=== PATIENT | female | born 1990 | race Caucasian/White ===

== ENCOUNTER 2021-10-22 09:09 | Emergency (ER) | payer MEDICAID ==
[~2021-10-22] VITALS: Ht 165.1 cm; Wt 56.0 kg
[2021-10-22] MEDS ORDERED: ACETAMINOPHEN 325MG TABLET PO ONE (10:15)
[2021-10-22 12:23] VITALS: BP 106/64
[2021-10-22] MEDS ORDERED: IBUP-2028 MT (12:26)
[2021-10-22] MEDS ORDERED: TOPUD MT (12:26)
== END 2021-10-22 12:59 | disposition home or self-care (01) ==
LOC: ER 09:09
DX: U07.1 COVID-19 (principal)
CPT/HCPCS: 87070; 87426; 87430; 99283

== ENCOUNTER 2021-11-29 16:25 | Emergency (ER) | payer MEDICAID ==
[~2021-11-29] VITALS: Ht 157.5 cm; Wt 56.0 kg
[~2021-11-29 16:25] MED LIST: IBUP-2028 MT; TOPUD MT
[2021-11-29] MEDS ORDERED: VALA10002 MT (21:56)
[2021-11-29 22:03] VITALS: BP 108/75
== END 2021-11-29 22:03 | disposition home or self-care (01) ==
LOC: ER 16:25
DX: B00.1 Herpesviral vesicular dermatitis (principal); Z98.890 Other specified postprocedural states
CPT/HCPCS: 81025; 87529; 99282

== ENCOUNTER 2024-12-03 19:07 | Emergency (ER) | payer MEDICAID ==
[~2024-12-03] VITALS: Ht 165.1 cm; Wt 55.6 kg
[~2024-12-03 19:07] MED LIST changes: +VALA10002 MT
[2024-12-03 19:12] VITALS: O2SAT 98
[2024-12-03 20:38] VITALS: TEMP 36.7; O2SAT 96
[2024-12-03 21:05] LABS: BASOPHILS % 0.4 % (0.0-2.0); EOSINOPHILS % 0.3 % (0.0-5.0); HEMATOCRIT. 38.1 % (36.0-48.0); HEMOGLOBIN. 12.4 g/dL (12.0-16.0); LYMPHOCYTES % 14.2 % (20.0-50.0); MEAN CORPUSCULAR HEMOGLOBIN 26.2 pg (28.0-32.0); MEAN CORPUSCULAR HGB CONC 32.6 g/dL (31.0-37.0); MEAN CORPUSCULAR VOLUME 80.2 fL (81.0-99.0); MEAN PLATELET VOLUME 8.9 fl (7.4-10.4); MONOCYTES % 5.5 % (2.0-8.0); NEUTROPHILS % 79.6 % (40.0-76.0); PLATELET 278 x1000/uL (130-400); RED BLOOD CELL COUNT 4.75 mill/uL (4.2-5.4); RED CELL DISTRIBUTION WIDTH 15.5 % (11.6-14.6); WHITE BLOOD COUNT 15.1 x1000/uL (4.5-11.0)
[2024-12-03 21:16] LABS: CHLORIDE 102 mEq/L (98-107); POTASSIUM 3.6 mEq/L (3.5-5.1); SODIUM 136 mEq/L (136-145)
[2024-12-03 21:17] LABS: CARBON DIOXIDE 23 mEq/L (21-32)
[2024-12-03 21:18] LABS: CALCIUM 9.7 mg/dL (8.7-10.4)
[2024-12-03 21:22] LABS: HCG SCREEN NEGATIVE
[2024-12-03 21:23] LABS: CREATININE 0.6 mg/dL (0.6-1.0); ETHANOL BLOOD < 10 mg/dL (<10); GLUCOSE 83 mg/dL (70-105); UREA NITROGEN BLOOD 13 mg/dL (9-23)
[2024-12-03 21:24] LABS: ACETAMINOPHEN 3 ug/mL (10-30)
[2024-12-03] MEDS ORDERED: ONDANSETRON HCL 4MG/2ML INJ IV PRN (22:00)
[2024-12-03] MEDS ORDERED: DOCUSATE SODIUM 100MG CAPSULE PO PRN (22:00)
[2024-12-03] MEDS ORDERED: ACETAMINOPHEN 325MG TABLET PO PRN ×2 (22:00)
[2024-12-03] MEDS ORDERED: GUAIFENESIN 200MG/10ML SUGAR FREE UDC PO PRN (22:00)
[2024-12-03] MEDS ORDERED: CLONIDINE 0.1MG TABLET PO PRN (22:00)
[2024-12-03] MEDS ORDERED: MAGNESIUM/ALUMINUM HYDROXIDE/SIMETHICONE 30ML UDC PO PRN (22:00)
[2024-12-03] MEDS ORDERED: DIPHENHYDRAMINE 50MG/ML VIAL IV PRN (22:00)
[2024-12-03] MEDS ORDERED: IPRATROPIUM/ALBUTEROL 0.5-3(2.5)MG/3ML NEB HHN PRN (22:00)
[2024-12-03 22:08] VITALS: BP 109/72; PULSE 88; RESP 12; TEMP 98
[2024-12-03 23:09] LABS: ETHANOL BLOOD < 10 mg/dL (<10)
[2024-12-03 23:10] LABS: ALANINE AMINOTRANSFERASE 12 IU/L (10-49); AMMONIA < 17 uMol/L (<32); CREATINE KINASE 42 IU/L (34-145); CREATINE KINASE MB FRACTION 0.6 ng/mL (0.5-3.6)
[2024-12-03 23:11] LABS: ALBUMIN 4.9 g/dL (3.2-4.8); ASPARTATE AMINOTRANSFERASE 13 IU/L (<34); BILIRUBIN DIRECT 0.1 mg/dL (<=3.0); BILIRUBIN TOTAL 0.7 mg/dL (0.1-1.0); PHOSPHORUS 3.1 mg/dL (2.5-4.9); TROPONIN I HIGH SENSITIVITY < 4 ng/L (3.0-34)
[2024-12-03 23:12] LABS: D-DIMER 0.24 mg/L FEU (<0.50); PROTHROMBIN TIME 10.7 sec (9.6-11.0)
[2024-12-03 23:13] LABS: T4 FREE 1.25 ng/dL (0.89-1.76); THYROID STIMULATING HORMONE 3.08 uIU/mL (0.55-4.78)
[2024-12-03 23:16] LABS: FOLIC ACID (FOLATE) SERUM > 20.00 ng/mL (>5.38)
[2024-12-03 23:20] LABS: FERRITIN 4 ng/mL (10-291)
[2024-12-03 23:28] LABS: IRON 99 ug/dL (50-170)
[2024-12-03 23:31] LABS: TOTAL IRON BINDING CAPACITY 387 ug/dl (250-425)
== END 2024-12-03 22:48 | disposition left against medical advice (07) ==
LOC: ER 19:07 → EDBEDREQ 22:33 → EDBEDREQTM 22:33 → EDBEDREQSVC 22:33 → ER 22:48
DX: G92.8 Other toxic encephalopathy (principal); Z98.890 Other specified postprocedural states; Z79.899 Other long term (current) drug therapy; Z79.624 Long term (current) use of inhibitors of nucleotide synthesis
CPT/HCPCS: 36415; 80048; 80076; 80307; 80320; 80329; 82140; 82550; 82553; 82728; 82746; 83036; 83540; 83550; 83605; 83735; 84100; 84145; 84439; 84443; 84484; 84703; 85025; 85379; 93005; 99284; G0480